=== PATIENT | male | born 1945 | race Hispanic/Latino ===

== ENCOUNTER 2022-05-08 13:21 | Inpatient (IN) | payer MEDICARE ==
[2022-05-08] MEDS ORDERED: IPRATROPIUM 0.02% NEBU 2.5 ML IH ONE (14:11)
[2022-05-08] MEDS ORDERED: ALBUTEROL 2.5 MG/3 ML NEBU IH ONE (14:11)
[2022-05-08] MEDS ORDERED: methylPREDNISolone Sod Succinate 125 MG/2 ML INJ IV ONE (14:11)
--- NOTE | 2022-05-08 14:36 | XRay Report ---
CHEST 1 VIEW 05/08/2022 2:18 PM INDICATION / CLINICAL INFORMATION: Dyspnea. COMPARISON: None available. FINDINGS: SUPPORT DEVICES: None. HEART / MEDIASTINUM: No significant abnormality. LUNGS / PLEURA: No significant pulmonary or pleural abnormality. No pneumothorax. ADDITIONAL FINDINGS: No significant additional findings. IMPRESSION: 1. No acute findings. Signer Name: Tai Hylton MD Signed: 05/08/2022 2:31 PM Workstation Name: [email or web address]
[2022-05-08 15:36] LABS: Hematocrit 47.2 % (35.5-45.6); Hemoglobin 16.1 gm/dl (11.8-15.2); Mean Corpuscular HGB Conc 34 % (32-34); Mean Corpuscular Volume 91 fl (84-94); Platelet Count 230 K/mm3 (140-440); Red Blood Count 5.21 M/mm3 (3.65-5.03); Red Cell Distribution Width 13.7 % (13.2-15.2)
[2022-05-08 15:54] LABS: Creatine Kinase MB 2.1 ng/mL (0.0-4.0)
[2022-05-08 15:56] LABS: Alanine Aminotransferase 8 units/L (7-56); BUN/Creatinine Ratio 16; Blood Urea Nitrogen 16 mg/dL (9-20); Hemolysis Index 11
[2022-05-08 16:02] LABS: INR 1.06 (0.87-1.13)
[2022-05-08] MEDS ORDERED: FUROSEMIDE 40 MG/4 ML INJ IV ONE (16:40)
[2022-05-08 17:29] LABS: Band Neutrophils # (Manual) 0.4 K/mm3; Basophils % (Manual) 0 % (0.0-1.8); Total Cells Counted 100
[2022-05-08 17:30] LABS: Ovalocytes Few; Platelet Estimate Consistent w Auto
[2022-05-08 18:15] LABS: Mucus,Urine 1+ /HPF; WBC,Urine < 1.0 /HPF (0.0-6.0)
[2022-05-08 18:24] LABS: Color,Urine Amber (Yellow)
--- NOTE | 2022-05-08 19:26 | Cat Scan Report ---
CT ABDOMEN AND PELVIS WITH CONTRAST INDICATION / CLINICAL INFORMATION: pain. TECHNIQUE: Axial CT images were obtained through the abdomen and pelvis after 100 mL Omnipaque [address] scans at this location are performed using CT dose reduction for ALARA by means of automated exposure control. COMPARISON: None available. FINDINGS: LOWER CHEST: No significant abnormality. LIVER: No significant abnormality. GALLBLADDER: Cholecystectomy. BILE DUCTS: No significant abnormality. PANCREAS: No significant abnormality. SPLEEN: No significant abnormality. ADRENALS: No significant abnormality. RIGHT KIDNEY / URETER: Simple cyst measuring 4.6 cm. No significant abnormality. LEFT KIDNEY / URETER: Simple cyst measuring 4.5 cm. No significant abnormality. STOMACH / SMALL BOWEL: Mildly thickened, fluid-filled, but nondilated loops of small bowel. No small bowel obstruction. COLON: Nonobstructed loop of sigmoid colon is present in a very large left inguinal hernia. No coloni c obstruction. APPENDIX: The appendix is dilated with mucosal enhancement. Appendix measures 1.1 cm in diameter. Mil d periappendiceal inflammation. PERITONEUM: Small amount of free fluid in the pelvis. No free air. No fluid collection. LYMPH NODES: No significant adenopathy. AORTA / ARTERIES: Mild atherosclerotic calcification without acute abnormality. IVC / VEINS: No significant abnormality. URINARY BLADDER: No significant abnormality. REPRODUCTIVE ORGANS: Prostate is enlarged. Prostate measures 6.1 x 6.3 x 7.8 cm. There is moderate in travesical protrusion of the median lobe of the prostate. ADDITIONAL FINDINGS: None. SKELETAL SYSTEM: No significant abnormality. IMPRESSION: 1. Mildly dilated fluid-filled appendix with mucosal enhancement and mild adjacent inflammation. Clin ical and laboratory correlation for acute appendicitis is recommended. 2. Large left inguinal hernia containing nonobstructed loop of sigmoid colon. 3. Fluid-filled but nondilated loops of small bowel which can be seen in the clinical setting of ente ritis. 4. Markedly enlarged prostate with intravesical protrusion. Signer Name: Tung Sousa MD Signed: 05/08/2022 7:21 PM Workstation Name: [email or web address] [id number]
--- NOTE | 2022-05-08 19:49 | History and Physical Report ---
History of Present Illness Chief complaint: My stomach hurts and it is a little hard to breathe History of present illness: 76 YO Male with Systolic CHF(EF 35%), COPD, HTN, VA, Nicotine Dependence presents ED for evaluation. Patient states "my stomach hurts and it is a little hard to breathe". Patient states that he has experienced abdominal pain to his lower right side over the past 3 days with persistent and worsening symptoms over the same timeframe. Patient states that pain is 2-4/10, intermittent. Patient also reports shortness of breath, decreased exercise tolerance. EMS was notified and upon arrival the patient was found to be in distress and subsequent transported to [facility] for further care and evaluation of the aforementioned symptoms. The patient was seen and evaluated in the emergency department. All lab and imaging studies reviewed. Patient was CT scan of the abdomen pelvis and found to have clinical findings consistent with acute appendicitis. Surgery team consulted in ED. Patient also found to have evidence of chronic CHF. Patient initiated on CHF protocol. Cardiology team consulted in ED. Patient denies fever, chills, chest pain, palpitation, adductive cough, skin rash, recen t contact, unilateral leg swelling, calf pain, individual/family history of DVT/PE/bleeding/blood clotting disorders, or known exposure to COVID-19, ingestion of food/water from new or different sources. Prior admission on 08/12/2016 reviewed. All medication listed at time of admission has been rec onciled. Advanced care planning conducted in ED. Medications and Allergies Allergies Allergy/AdvReac Type Severity Reaction Status Date / Time No Known Allergies Allergy Unverified 08/12/16 20:57 Home Medications Medication Instructions Recorded Confirmed Last Taken Type Atenolol 50 mg PO DAILY 08/12/16 08/12/16 1 Day Ago History ~08/11/16 Cardizem 120 mg PO DAILY 08/12/16 08/12/16 1 Day Ago History ~08/11/16 Aspirin 325 mg PO QDAY 30 Days tablet 08/14/16 Unknown Rx Simvastatin (Nf) [Zocor TAB] 20 mg PO QHS #30 tablet 08/14/16 Unknown Rx lisinopriL [Zestril TAB] 10 mg PO QDAY #30 tablet 08/14/16 Unknown Rx Active Meds: Active Medications Ertapenem 1 gm/ Sodium (Chloride) 50 mls @ 100 mls/hr IV ONCE ONE Stop: 05/08/22 20:17 Exam - Constitutional Vitals: Temp Pulse Resp BP Pulse Ox 99.9 F H 81 20 114/49 99 05/08/22 18:16 05/08/22 18:16 05/08/22 18:16 05/08/22 18:16 05/08/22 18:16 HEART Score - HEART Score Troponin: Troponin T < 0.010 ng/mL (0.00-0.029) 05/08/22 14:46 Results - Labs CBC & Chem 7: 05/08/22 14:46 05/08/22 14:46 Labs: Abnormal lab results 05/08/22 05/08/22 05/08/22 Range/Units 14:46 14:46 14:46 RBC 5.21 H (3.65-5.03) M/mm3 Hgb 16.1 H (11.8-15.2) gm/dl Hct 47.2 H (35.5-45.6) % Seg Neuts % (Manual) 92.0 H (40.0-70.0) % Lymphocytes % (Manual) 1.0 L (13.4-35.0) % Seg Neutrophils # Man 9.7 H (1.8-7.7) K/mm3 Lymphocytes # (Manual) 0.1 L (1.2-5.4) K/mm3 PT 15.0 H (12.2-14.9) Sec. Sodium 129 L (137-145) mmol/L Potassium 5.8 H (3.6-5.0) mmol/L Chloride 88.6 L (98-107) mmol/L Glucose 190 H (75-100) mg/dL Total Bilirubin 1.70 H (0.1-1.2) mg/dL C-Reactive Protein (0.00-1.30) mg/dL NT-Pro-B Natriuret Pep (0-900) pg/mL Total Protein 6.1 L (6.3-8.2) g/dL Lipase 12 L (13-60) units/L 05/08/22 Range/Units 14:46 RBC (3.65-5.03) M/mm3 Hgb (11.8-15.2) gm/dl Hct (35.5-45.6) % Seg Neuts % (Manual) (40.0-70.0) % Lymphocytes % (Manual) (13.4-35.0) % Seg Neutrophils # Man (1.8-7.7) K/mm3 Lymphocytes # (Manual) (1.2-5.4) K/mm3 PT (12.2-14.9) Sec. Sodium (137-145) mmol/L Potassium (3.6-5.0) mmol/L Chloride (98-107) mmol/L Glucose (75-100) mg/dL Total Bilirubin (0.1-1.2) mg/dL C-Reactive Protein 11.40 H (0.00-1.30) mg/dL NT-Pro-B Natriuret Pep 3007 H (0-900) pg/mL Total Protein (6.3-8.2) g/dL Lipase (13-60) units/L Assessment and Plan - Patient Problems (1) Acute appendicitis Current Visit: Yes Status: Acute Qualifiers: Appendicitis abscess presence: without abscess Plan to address problem: CT scan abdomen pelvis, serial abdominal exam, surgery team consulted in ED, supportive care. (2) BPH (benign prostatic hyperplasia) Current Visit: Yes Status: Acute Plan to address problem: CT scan abdomen pelvis resulted and incidental finding of enlarged prostate. PSA level. Outpatient urology follow-up. (3) COPD (chronic obstructive pulmonary disease) Current Visit: Yes Status: Acute Plan to address problem: Supplemental oxygen, pulse oximetry, nebulizer therapy, supportive care. No acute exacerbation at this time. (4) CHF (congestive heart failure) Current Visit: Yes Status: Acute Qualifiers: Heart failure chronicity: chronic Plan to address problem: CHF protocol: Strict I/O, monitoring output every shift, daily weight, afterload reduction, blood pressure control, diuresis, cardiology team consulted, echocardiogram ordered and pending at time of admission, thyroid panel, magnesium level. (5) DVT prophylaxis Current Visit: Yes Status: Acute Plan to address problem: SCD to bilateral lower extremities while in bed (6) Advance care planning Current Visit: Yes Status: Acute Plan to address problem: Disease education done, care plan discussed, diagnoses discussed, prognosis discussed, patient is full code. Patient knowledges understanding agreement with care plan, +30 minutes. (7) Preventative health care Current Visit: Yes Status: Acute Plan to address problem: Patient counseled regarding risk factor reduction, outpatient follow-up with [facility] care physician for all age and risk factor appropriate screening test. +30 minutes.
[2022-05-08] MEDS ORDERED: ONDANSETRON 4 MG/2 ML INJ IV PRN (19:50)
[2022-05-08] MEDS ORDERED: ACETAMINOPHEN 325 MG TAB PO PRN (19:50)
[2022-05-08] MEDS ORDERED: ALBUTEROL 2.5 MG/3 ML NEBU IH PRN (19:50)
--- NOTE | 2022-05-08 19:53 | Emergency Department Report ---
ED General Adult HPI - General Chief complaint: Dyspnea/Respdistress Stated complaint: ANTONELLA PUI?: No Time Seen by Provider: 05/08/22 14:11 Source: EMS Mode of arrival: Stretcher Limitations: Physical Limitation - History of Present Illness Initial comments: PT REPORTS ANTONELLA, RECEIVED 2.5 [employer] history of chf and copd, not on home o2 also reported some rt lower abdominal pain no anusea no fever , has lower abdominal hernia -: Gradual, hour(s) Location: chest, abdomen Severity scale (0 -10): 0 - Related Data Home Medications Medication Instructions Recorded Confirmed Last Taken Atenolol 50 mg PO DAILY 08/12/16 08/12/16 1 Day Ago ~08/11/16 Cardizem 120 mg PO DAILY 08/12/16 08/12/16 1 Day Ago ~08/11/16 Previous Rx's Medication Instructions Recorded Last Taken Type Aspirin 325 mg PO QDAY 30 Days tablet 08/14/16 Unknown Rx Simvastatin (Nf) [Zocor TAB] 20 mg PO QHS #30 tablet 08/14/16 Unknown Rx lisinopriL [Zestril TAB] 10 mg PO QDAY #30 tablet 08/14/16 Unknown Rx Allergies Allergy/AdvReac Type Severity Reaction Status Date / Time No Known Allergies Allergy Unverified 08/12/16 20:57 ED Review of Systems ROS: Stated complaint: ANTONELLA Other details as noted in HPI Constitutional: denies: chills, fever Eyes: denies: eye pain, eye discharge, vision change ENT: denies: ear pain, throat pain Respiratory: denies: cough, shortness of breath, wheezing Cardiovascular: denies: chest pain, palpitations Endocrine: no symptoms reported Gastrointestinal: denies: abdominal pain, nausea, diarrhea Genitourinary: denies: urgency, dysuria Musculoskeletal: denies: back pain, joint swelling, arthralgia Skin: denies: rash, lesions Neurological: denies: headache, weakness, paresthesias Psychiatric: denies: anxiety, depression Hematological/Lymphatic: denies: easy bleeding, easy bruising ED Past Medical Hx - Past Medical History Previous Medical History?: Yes Hx Hypertension: Yes Hx Heart Attack/AMI: Yes (x2) - Surgical History Hx Cholecystectomy: Yes - Social History Smoking Status: Current Every Day Smoker Substance Use Type: None - Medications Home Medications: Home Medications Medication Instructions Recorded Confirmed Last Taken Type Atenolol 50 mg PO DAILY 08/12/16 08/12/16 1 Day Ago History ~08/11/16 Cardizem 120 mg PO DAILY 08/12/16 08/12/16 1 Day Ago History ~08/11/16 Aspirin 325 mg PO QDAY 30 Days tablet 08/14/16 Unknown Rx Simvastatin (Nf) [Zocor TAB] 20 mg PO QHS #30 tablet 08/14/16 Unknown Rx lisinopriL [Zestril TAB] 10 mg PO QDAY #30 tablet 08/14/16 Unknown Rx ED Physical Exam - General Limitations: Physical Limitation General appearance: alert - Head Head exam: Present: atraumatic, normocephalic - Eye Eye exam: Present: normal appearance - ENT ENT exam: Present: mucous membranes moist - Neck Neck exam: Present: normal inspection - Respiratory Respiratory exam: Present: normal lung sounds bilaterally, wheezes. Absent: respiratory distress - Cardiovascular Cardiovascular Exam: Present: regular rate, normal rhythm. Absent: systolic murmur, diastolic murmur, rubs, gallop - GI/Abdominal GI/Abdominal exam: Present: soft, tenderness - Expanded GI/Abdominal Exam Expanded GI/Abdominal exam: Present: tenderness at [place], other (large left ingional hernia) - Rectal Rectal exam: Present: deferred - Extremities Exam Extremities exam: Present: normal inspection - Back Exam Back exam: Present: normal inspection - Neurological Exam Neurological exam: Present: alert, oriented X3 - Psychiatric Psychiatric exam: Present: normal affect, normal mood - Skin Skin exam: Present: warm, dry, intact, normal color. Absent: rash ED Course Vital Signs 05/08/22 05/08/22 05/08/22 13:31 14:01 16:40 Temperature 98.9 F 97.9 F Pulse Rate 90 87 92 H Respiratory 18 22 20 Rate Blood Pressure 111/64 Blood Pressure 120/78 111/64 121/55 [Left] O2 Sat by Pulse 95 97 95 Oximetry 05/08/22 18:16 Temperature 99.9 F H Pulse Rate 81 Respiratory 20 Rate Blood Pressure Blood Pressure 114/49 [Left] O2 Sat by Pulse 99 Oximetry ED Medical Decision Making - Lab Data Result diagrams: 05/08/22 14:46 05/08/22 14:46 - EKG Data -: EKG Interpreted by Me - EKG Data Interpretation: nonspecific ST-T wave yumiko, other (atrial fib ) - Radiology Data Radiology results: report reviewed, image reviewed - Medical Decision Making albuterol sterios given lasix given ct scan showed appendicitis abx given will speak to dr Jackson Critical care attestation.: If time is entered above; I have spent that time in minutes in the direct care of this critically ill patient, excluding procedure time. ED Disposition Clinical Impression: SOB (shortness of breath), COPD exacerbation, CHF (congestive heart failure), Acute appendicitis Disposition: 09 ADMITTED INPATIENT Is pt being admited?: Yes Does the pt Need Aspirin: No Condition: Stable Instructions: Chronic Obstructive Pulmonary Disease (ED)
[2022-05-08 20:36] LABS: Free T4 (Free Thyroxine) 1.21 ng/dL (0.76-1.46)
[2022-05-08] MEDS ORDERED: ERTAPENEM 1 GM in SODIUM CHLORIDE 0.9% 50 ML IV ONE (21:00)
--- NOTE | 2022-05-08 22:59 | Consultation ---
History of Present Illness Consult date: 05/08/22 Reason for consult: abdominal pain - History of present illness History of present illness: Malik is a 76-year-old male admitted through the emergency room with lower abdominal pain. He has medical issues including congestive heart failure and COPD. He is a chronic smoker and is continuing to smoke. He states that he is having lower abdominal pain for the last 3 to 4 days. He is denying any nausea or vomiting. Patient is aware that he has a large right inguinal hernia. He is refused to have this repaired in the past. CT of the abdomen pelvis is significant for early acute appendicitis with a mild dilatation of the pandemics. Patient's white count is 10,500 unfortunately his sodium is 129 his potassium is 5.8. Creatinine is 1.0 BUN 16 GFR is greater than 60. His admission glucose is 190. The surgical consult is for evaluation of and management of abdominal pain related to acute appendicitis. Medications and Allergies Allergies Allergy/AdvReac Type Severity Reaction Status Date / Time No Known Allergies Allergy Unverified 08/12/16 20:57 Home Medications Medication Instructions Recorded Confirmed Last Taken Type Atenolol 50 mg PO DAILY 08/12/16 08/12/16 1 Day Ago History ~08/11/16 Cardizem 120 mg PO DAILY 08/12/16 08/12/16 1 Day Ago History ~08/11/16 Aspirin 325 mg PO QDAY 30 Days tablet 08/14/16 Unknown Rx Simvastatin (Nf) [Zocor TAB] 20 mg PO QHS #30 tablet 08/14/16 Unknown Rx lisinopriL [Zestril TAB] 10 mg PO QDAY #30 tablet 08/14/16 Unknown Rx Active Meds: Active Medications Acetaminophen (Acetaminophen 325 Mg Tab) 650 mg PO Q4H PRN PRN Reason: Pain MILD(1-3)/Fever >100.5/HURST Albuterol (Albuterol 2.5 Mg/3 Ml Nebu) 2.5 mg IH Q4HRT PRN PRN Reason: Shortness Of Breath Atenolol (Atenolol 50 Mg Tab) 50 mg PO DAILY@0800 ANNIE Furosemide (Furosemide 20 Mg/2 Ml Inj) 20 mg IV BID@0600,1800 ANNIE Hydromorphone HCl (Hydromorphone 0.5 Mg/0.5 Ml Inj) 0.5 mg IV Q8H PRN PRN Reason: Pain , Severe (7-10) Lisinopril (Lisinopril 10 Mg Tab) 10 mg PO QDAY ANNIE Ondansetron HCl (Ondansetron 4 Mg/2 Ml Inj) 4 mg IV Q8H PRN PRN Reason: Nausea And Vomiting Oxycodone/Acetaminophen (Oxycodone /Acetaminophen 5-325mg Tab) 1 tab PO Q6H PRN PRN Reason: Pain, Moderate (4-6) Pravastatin Sodium (Pravastatin 40 Mg Tab) 40 mg PO QHS ANNIE Sodium Chloride (Sodium Chloride 0.9% 10 Ml Flush Syringe) 10 ml IV BID ANNIE Sodium Chloride (Sodium Chloride 0.9% 10 Ml Flush Syringe) 10 ml IV PRN PRN PRN Reason: LINE FLUSH Exam Vital Signs Pulse Resp BP Pulse Ox 90 18 120/78 95 05/08/22 13:31 05/08/22 13:31 05/08/22 13:31 05/08/22 13:31 - General physical appearance Positive: well developed - Eyes Positive: PERRL - Neck Positive: no masses, no bruits, trachea midline - Respiratory Positive: normal expansion - Cardiovascular Rhythm: regular - Extremities Extremities: no ischemia, No edema - Abdomen Abdomen: Present: soft, tender, bowel sounds normal, rebound, guarding. Absent: distended, masses, rigid Hernia: inguinal, incarcerated - Genitourinary Male Genitourinary: left inguinal hernia - Neurologic Neurologic: alert and oriented to time, place and person, motor strength and sensation are grossly intact, CN II-XII intact Results - Labs 05/08/22 14:46 05/08/22 14:46 Abnormal lab results 05/08/22 05/08/22 05/08/22 Range/Units 14:46 14:46 14:46 RBC 5.21 H (3.65-5.03) M/mm3 Hgb 16.1 H (11.8-15.2) gm/dl Hct 47.2 H (35.5-45.6) % Seg Neuts % (Manual) 92.0 H (40.0-70.0) % Lymphocytes % (Manual) 1.0 L (13.4-35.0) % Seg Neutrophils # Man 9.7 H (1.8-7.7) K/mm3 Lymphocytes # (Manual) 0.1 L (1.2-5.4) K/mm3 PT 15.0 H (12.2-14.9) Sec. Sodium 129 L (137-145) mmol/L Potassium 5.8 H (3.6-5.0) mmol/L Chloride 88.6 L (98-107) mmol/L Glucose 190 H (75-100) mg/dL Magnesium (1.7-2.3) mg/dL Total Bilirubin 1.70 H (0.1-1.2) mg/dL C-Reactive Protein (0.00-1.30) mg/dL NT-Pro-B Natriuret Pep (0-900) pg/mL Total Protein 6.1 L (6.3-8.2) g/dL Lipase 12 L (13-60) units/L 05/08/22 05/08/22 Range/Units 14:46 14:46 RBC (3.65-5.03) M/mm3 Hgb (11.8-15.2) gm/dl Hct (35.5-45.6) % Seg Neuts % (Manual) (40.0-70.0) % Lymphocytes % (Manual) (13.4-35.0) % Seg Neutrophils # Man (1.8-7.7) K/mm3 Lymphocytes # (Manual) (1.2-5.4) K/mm3 PT (12.2-14.9) Sec. Sodium (137-145) mmol/L Potassium (3.6-5.0) mmol/L Chloride (98-107) mmol/L Glucose (75-100) mg/dL Magnesium 1.50 L (1.7-2.3) mg/dL Total Bilirubin (0.1-1.2) mg/dL C-Reactive Protein 11.40 H (0.00-1.30) mg/dL NT-Pro-B Natriuret Pep 3007 H (0-900) pg/mL Total Protein (6.3-8.2) g/dL Lipase (13-60) units/L Diabetes panel 05/08/22 Range/Units 14:46 Sodium 129 L (137-145) mmol/L Potassium 5.8 H (3.6-5.0) mmol/L Chloride 88.6 L (98-107) mmol/L Carbon Dioxide 28 (22-30) mmol/L BUN 16 (9-20) mg/dL Creatinine 1.0 (0.8-1.3) mg/dL Glucose 190 H (75-100) mg/dL Calcium 9.0 (8.4-10.2) mg/dL AST 14 (5-40) units/L ALT 8 (7-56) units/L Alkaline Phosphatase 96 (35-129) units/L Total Protein 6.1 L (6.3-8.2) g/dL Albumin 4.0 (3.9-5) g/dL Thyroid panel 05/08/22 Range/Units 14:46 TSH 0.805 (0.270-4.200) mlU/mL Calcium panel 05/08/22 Range/Units 14:46 Calcium 9.0 (8.4-10.2) mg/dL Albumin 4.0 (3.9-5) g/dL Pituitary panel 05/08/22 05/08/22 Range/Units 14:46 14:46 Sodium 129 L (137-145) mmol/L Potassium 5.8 H (3.6-5.0) mmol/L Chloride 88.6 L (98-107) mmol/L Carbon Dioxide 28 (22-30) mmol/L BUN 16 (9-20) mg/dL Creatinine 1.0 (0.8-1.3) mg/dL Glucose 190 H (75-100) mg/dL Calcium 9.0 (8.4-10.2) mg/dL TSH 0.805 (0.270-4.200) mlU/mL Adrenal panel 05/08/22 Range/Units 14:46 Sodium 129 L (137-145) mmol/L Potassium 5.8 H (3.6-5.0) mmol/L Chloride 88.6 L (98-107) mmol/L Carbon Dioxide 28 (22-30) mmol/L BUN 16 (9-20) mg/dL Creatinine 1.0 (0.8-1.3) mg/dL Glucose 190 H (75-100) mg/dL Calcium 9.0 (8.4-10.2) mg/dL Total Bilirubin 1.70 H (0.1-1.2) mg/dL AST 14 (5-40) units/L ALT 8 (7-56) units/L Alkaline Phosphatase 96 (35-129) units/L Total Protein 6.1 L (6.3-8.2) g/dL Albumin 4.0 (3.9-5) g/dL Assessment and Plan This is a 76-year-old patient with acute appendicitis. He is notably with a markedly abnormal sodium at 129 potassium 5.9 these are being corrected this evening. Dr. Benavides has admitted the patient and in discussion with them would like to do any cardiology clearance and echocardiogram. Patient will be made n.p.o. after midnight he is on clear liquids now. If the pain does not clinically deteriorate through the night the correction of the electrolytes will be checked and also the echocardiogram can be obtained.
[2022-05-08] MEDS: SODIUM CHLORIDE 0.9% 1000 ML 1,000 ML IV SCH (23:30)
[2022-05-08] MEDS: PRAVASTATIN 40 MG TAB PO SCH (23:34)
[2022-05-08] MEDS ORDERED: SODIUM POLYSTYRENE 15 GM/60 ML ORAL LIQD PO ONE (23:58)
[2022-05-08] MEDS ORDERED: DEXTROSE 50% IN WATER (25GM) 50 ML SYRINGE IV ONE (23:59)
[2022-05-08] MEDS ORDERED: INSULIN REGULAR, HUMAN 100 UNITS/1 ML IV ONE (23:59)
[2022-05-09 04:25] LABS: Alanine Aminotransferase 9 units/L (7-56); Albumin 3.7 g/dL (3.9-5); BUN/Creatinine Ratio 23; Blood Urea Nitrogen 21 mg/dL (9-20); Calcium 8.7 mg/dL (8.4-10.2); Hemolysis Index 16
[2022-05-09 04:47] LABS: Hematocrit 45.6 % (35.5-45.6); Hemoglobin 15.1 gm/dl (11.8-15.2); Mean Corpuscular HGB Conc 33 % (32-34); Mean Corpuscular Volume 90 fl (84-94); Platelet Count 197 K/mm3 (140-440); Red Blood Count 5.05 M/mm3 (3.65-5.03); Red Cell Distribution Width 13.2 % (13.2-15.2)
[2022-05-09 05:35] LABS: Basophils % (Manual) 0 % (0.0-1.8); Eosinophils % (Manual) 0 % (0.0-4.3); RBC Morphology Normal; Total Cells Counted 100
[2022-05-09] MEDS: INSULIN REGULAR, HUMAN 100 UNITS/1 ML IV ONE ×2 (05:44→05:47)
[2022-05-09] MEDS ORDERED: SODIUM POLYSTYRENE 15 GM/60 ML ORAL LIQD PO ONE (05:47)
[2022-05-09] MEDS: FUROSEMIDE 20 MG/2 ML INJ IV SCH ×2 (06:18→17:16)
[2022-05-09] MEDS ORDERED: DEXTROSE 50% IN WATER (25GM) 50 ML SYRINGE IV ONE (06:38)
[2022-05-09] MEDS: SODIUM CHLORIDE 0.9% 1000 ML 1,000 ML IV SCH ×2 (07:01→22:24)
[2022-05-09] MEDS: HYDROmorphone 0.5 MG/0.5 ML INJ IV PRN (07:54)
[2022-05-09] MEDS: LISINOPRIL 10 MG TAB PO SCH ×2 (08:50→16:41)
[2022-05-09] MEDS: atenoloL 50 MG TAB PO SCH (08:50)
--- NOTE | 2022-05-09 09:49 | Progress Note ---
Assessment and Plan Assessment and plan: 76 YO Male with Systolic CHF(EF 35%), COPD, HTN, LA, Nicotine Dependence [facility] ED for evaluation of right-sided abdominal pain. The patient was admitted with diagnosis below: Acute appendicitis COPD, compensated. Chronic systolic heart failure, compensated. Echocardiogram 2016 revealed EF of 35-40%. Moderate global hypokinesis. Mild concentric left ventricular hyp ertrophy Hyponatremia Hyperkalemia Hypertension History of LA Nicotine dependence 05/09/2022. Recheck BMP this AM. Patient received Lasix and Kayexalate yesterday. We will follow-up to see if treatment has corrected potassium. Given patient's cardiac history of CHF and LA, Cardiology has been consulted and echocardiogram pending. Await surgery follow-up for appendectomy History Interval history: No new issues Hospitalist Physical - Constitutional Vitals: Temp Pulse Resp BP Pulse Ox 98.3 F 111 H 20 143/74 100 05/09/22 05:57 05/09/22 05:57 05/09/22 05:57 05/09/22 05:57 05/09/22 08:47 General appearance: Present: no acute distress, well-nourished - EENT Eyes: Present: PERRL, EOM intact ENT: hearing intact, clear oral mucosa, dentition normal - Neck Neck: Present: supple, normal ROM - Respiratory Respiratory effort: normal Respiratory: bilateral: CTA - Cardiovascular Rhythm: regular Heart Sounds: Present: S1 & S2. Absent: gallop, rub - Extremities Extremities: no ischemia, No edema, Full ROM - Abdominal General gastrointestinal: soft, non-tender, non-distended, normal bowel sounds - Integumentary Integumentary: Present: clear, warm, dry - Neurologic Neurologic: CNII-XII intact, moves all extremities HEART Score - HEART Score Troponin: Troponin T < 0.010 ng/mL (0.00-0.029) 05/08/22 14:46 Results - Labs CBC & Chem 7: 05/09/22 03:43 05/09/22 03:43 Labs: Laboratory Last Values WBC 8.5 K/mm3 (4.5-11.0) 05/09/22 03:43 RBC 5.05 M/mm3 (3.65-5.03) H 05/09/22 03:43 Hgb 15.1 gm/dl (11.8-15.2) 05/09/22 03:43 Hct 45.6 % (35.5-45.6) 05/09/22 03:43 MCV 90 fl (84-94) 05/09/22 03:43 MCH 30 pg (28-32) 05/09/22 03:43 MCHC 33 % (32-34) 05/09/22 03:43 RDW 13.2 % (13.2-15.2) 05/09/22 03:43 Plt Count 197 K/mm3 (140-440) 05/09/22 03:43 Add Manual Diff Complete 05/09/22 03:43 Total Counted 100 05/09/22 03:43 Seg Neutrophils % Rubber Liner 05/09/22 03:43 Seg Neuts % (Manual) 87.0 % (40.0-70.0) H 05/09/22 03:43 Band Neutrophils % 0 % 05/09/22 03:43 Lymphocytes % (Manual) 8.0 % (13.4-35.0) L 05/09/22 03:43 Reactive Lymphs % (Man) 0 % 05/09/22 03:43 Monocytes % (Manual) 5.0 % (0.0-7.3) 05/09/22 03:43 Eosinophils % (Manual) 0 % (0.0-4.3) 05/09/22 03:43 Basophils % (Manual) 0 % (0.0-1.8) 05/09/22 03:43 Metamyelocytes % 0 % 05/09/22 03:43 Myelocytes % 0 % 05/09/22 03:43 Promyelocytes % 0 % 05/09/22 03:43 Blast Cells % 0 % 05/09/22 03:43 Nucleated RBC % Not Reportable 05/09/22 03:43 Seg Neutrophils # Man 7.4 K/mm3 (1.8-7.7) 05/09/22 03:43 Band Neutrophils # 0.0 K/mm3 05/09/22 03:43 Lymphocytes # (Manual) 0.7 K/mm3 (1.2-5.4) L 05/09/22 03:43 Abs React Lymphs (Man) 0.0 K/mm3 05/09/22 03:43 Monocytes # (Manual) 0.4 K/mm3 (0.0-0.8) 05/09/22 03:43 Eosinophils # (Manual) 0.0 K/mm3 (0.0-0.4) 05/09/22 03:43 Basophils # (Manual) 0.0 K/mm3 (0.0-0.1) 05/09/22 03:43 Metamyelocytes # 0.0 K/mm3 05/09/22 03:43 Myelocytes # 0.0 K/mm3 05/09/22 03:43 Promyelocytes # 0.0 K/mm3 05/09/22 03:43 Blast Cells # 0.0 K/mm3 05/09/22 03:43 WBC Morphology Not Reportable 05/09/22 03:43 Hypersegmented Neuts Not Reportable 05/09/22 03:43 Hyposegmented Neuts Not Reportable 05/09/22 03:43 Hypogranular Neuts Not Reportable 05/09/22 03:43 Smudge Cells Not Reportable 05/09/22 03:43 Toxic Granulation Not Reportable 05/09/22 03:43 Toxic Vacuolation Not Reportable 05/09/22 03:43 Dohle Bodies Not Reportable 05/09/22 03:43 Pelger-Huet Anomaly Not Reportable 05/09/22 03:43 Niko Rods Not Reportable 05/09/22 03:43 Platelet Estimate Not Reportable 05/09/22 03:43 Clumped Platelets Not Reportable 05/09/22 03:43 Plt Clumps, EDTA Not Reportable 05/09/22 03:43 Large Platelets Not Reportable 05/09/22 03:43 Giant Platelets Not Reportable 05/09/22 03:43 Platelet Satelliting Not Reportable 05/09/22 03:43 Plt Morphology Comment Not Reportable 05/09/22 03:43 RBC Morphology Normal 05/09/22 03:43 Dimorphic RBCs Not Reportable 05/09/22 03:43 Polychromasia Not Reportable 05/09/22 03:43 Hypochromasia Not Reportable 05/09/22 03:43 Poikilocytosis Not Reportable 05/09/22 03:43 Anisocytosis Not Reportable 05/09/22 03:43 Microcytosis Not Reportable 05/09/22 03:43 Macrocytosis Not Reportable 05/09/22 03:43 Spherocytes Not Reportable 05/09/22 03:43 Pappenheimer Bodies Not Reportable 05/09/22 03:43 Sickle Cells Not Reportable 05/09/22 03:43 Target Cells Not Reportable 05/09/22 03:43 Tear Drop Cells Not Reportable 05/09/22 03:43 Ovalocytes Not Reportable 05/09/22 03:43 Helmet Cells Not Reportable 05/09/22 03:43 [place] Bodies Not Reportable 05/09/22 03:43 Herrick Rings Not Reportable 05/09/22 03:43 [place] Cells Not Reportable 05/09/22 03:43 Bite Cells Not Reportable 05/09/22 03:43 Crenated Cell Not Reportable 05/09/22 03:43 Elliptocytes Not Reportable 05/09/22 03:43 Acanthocytes (Spur) Not Reportable 05/09/22 03:43 Rouleaux Not Reportable 05/09/22 03:43 Hemoglobin C Crystals Not Reportable 05/09/22 03:43 Schistocytes Not Reportable 05/09/22 03:43 Malaria parasites Not Reportable 05/09/22 03:43 Ruben Bodies Not Reportable 05/09/22 03:43 Hem Pathologist Commnt No 05/09/22 03:43 PT 15.0 Sec. (12.2-14.9) H 05/08/22 14:46 INR 1.06 (0.87-1.13) 05/08/22 14:46 Sodium 130 mmol/L (137-145) L 05/09/22 03:43 Potassium 6.1 mmol/L (3.6-5.0) H* 05/09/22 03:43 Chloride 91.6 mmol/L (98-107) L 05/09/22 03:43 Carbon Dioxide 28 mmol/L (22-30) 05/09/22 03:43 Anion Gap 17 mmol/L 05/09/22 03:43 BUN 21 mg/dL (9-20) H 05/09/22 03:43 Creatinine 0.9 mg/dL (0.8-1.3) 05/09/22 03:43 Estimated GFR > 60 ml/min 05/09/22 03:43 BUN/Creatinine Ratio 23 % 05/09/22 03:43 Glucose 179 mg/dL (75-100) H 05/09/22 03:43 Ketones Quantitative Negative (Negative) 05/08/22 14:46 Calcium 8.7 mg/dL (8.4-10.2) 05/09/22 03:43 Magnesium 1.50 mg/dL (1.7-2.3) L 05/08/22 14:46 Total Bilirubin 0.70 mg/dL (0.1-1.2) 05/09/22 03:43 AST 12 units/L (5-40) 05/09/22 03:43 ALT 9 units/L (7-56) 05/09/22 03:43 Alkaline Phosphatase 71 units/L (35-129) 05/09/22 03:43 Total Creatine Kinase 70 units/L (55-170) 05/08/22 14:46 CK-MB (CK-2) 2.1 ng/mL (0.0-4.0) 05/08/22 14:46 CK-MB (CK-2) Rel Index 3.0 (0-4) 05/08/22 14:46 Troponin T < 0.010 ng/mL (0.00-0.029) 05/08/22 14:46 C-Reactive Protein 11.40 mg/dL (0.00-1.30) H 05/08/22 14:46 NT-Pro-B Natriuret Pep 3007 pg/mL (0-900) H 05/08/22 14:46 Total Protein 5.8 g/dL (6.3-8.2) L 05/09/22 03:43 Albumin 3.7 g/dL (3.9-5) L 05/09/22 03:43 Albumin/Globulin Ratio 1.8 % 05/09/22 03:43 Lipase 12 units/L (13-60) L 05/08/22 14:46 TSH 0.805 mlU/mL (0.270-4.200) 05/08/22 14:46 Free T4 1.21 ng/dL (0.76-1.46) 05/08/22 14:46 Urine Color Snow (Yellow) 05/08/22 16:53 Urine Turbidity Clear (Clear) 05/08/22 16:53 Specific [place] (Man) 1.020 (1.003-1.030) 05/08/22 16:53 Ur Protein (Man) 2+ mg/dL (Negative) 05/08/22 16:53 Ur Ketones (Man) Negative (Negative) 05/08/22 16:53 Ur Nitrite (Man) Negative (Negative) 05/08/22 16:53 Ur Reducing Substances Not Reportable 05/08/22 16:53 Urine Bilirubin (Man) Negative (Negative) 05/08/22 16:53 Urine Ictotest Not Reportable 05/08/22 16:53 Leukocyte Esterase (Man) Negative (Negative) 05/08/22 16:53 Urine WBC (Auto) < 1.0 /HPF (0.0-6.0) 05/08/22 16:53 Urine RBC (Auto) 2.0 /HPF (0.0-6.0) 05/08/22 16:53 Urine RBC (Manual) Negative (Negative) 05/08/22 16:53 Urine Mucus 1+ /HPF 05/08/22 16:53 Madden/IV: Voiding Method Toilet Active Medications - Current Medications Current Medications: Generic Name Dose Route Start Last Admin Trade Name Freq PRN Reason Stop Dose Admin Acetaminophen 650 mg 05/08/22 19:50 Acetaminophen 325 Mg Tab PO Q4H PRN Pain MILD(1-3)/Fever >100.5/HURST Albuterol 2.5 mg 05/08/22 19:50 Albuterol 2.5 Mg/3 Ml Nebu IH Q4HRT PRN Shortness Of Breath Atenolol 50 mg 05/09/22 08:00 05/09/22 08:50 Atenolol 50 Mg Tab PO 50 mg DAILY@0800 ANNIE Administration Furosemide 20 mg 05/09/22 06:00 05/09/22 06:18 Furosemide 20 Mg/2 Ml Inj IV 20 mg BID@0600,1800 ANNIE Administration Hydromorphone HCl 0.5 mg 05/08/22 19:50 05/09/22 07:54 Hydromorphone 0.5 Mg/0.5 Ml Inj IV 0.5 mg Q8H PRN Administration Pain , Severe (7-10) Sodium Chloride 1,000 mls @ 125 mls/hr 05/08/22 23:00 05/09/22 07:01 Nacl 0.9% 1000 Ml IV 125 mls/hr DIRECT ANNIE Administration Lisinopril 10 mg 05/09/22 10:00 05/09/22 08:50 Lisinopril 10 Mg Tab PO 10 mg QDAY ANNIE Administration Ondansetron HCl 4 mg 05/08/22 19:50 Ondansetron 4 Mg/2 Ml Inj IV Q8H PRN Nausea And Vomiting Oxycodone/Acetaminophen 1 tab 05/08/22 19:50 Oxycodone /Acetaminophen 5-325mg Tab PO Q6H PRN Pain, Moderate (4-6) Pravastatin Sodium 40 mg 05/08/22 22:00 05/08/22 23:34 Pravastatin 40 Mg Tab PO 40 mg QHS ANNIE Administration Sodium Chloride 10 ml 05/08/22 22:00 05/09/22 08:51 Sodium Chloride 0.9% 10 Ml Flush Syringe IV 10 ml BID ANNIE Administration Sodium Chloride 10 ml 05/08/22 19:50 Sodium Chloride 0.9% 10 Ml Flush Syringe IV PRN PRN LINE FLUSH
[2022-05-09] MEDS ORDERED: PERFLUTREN PROTEIN-A MICROSPHR 0.22 MG/ML VIAL IV ONE (11:00)
--- NOTE | 2022-05-09 11:09 | Consultation ---
History of Present Illness Consult date: 05/09/22 Requesting physician: STANLEY RUIZ Consult reason: pre op evaluation History of present illness: 76-year-old male who is a smoker with history of hypertension states 10 years ago had a heart attack. Has not had cardiac follow-up. Presents with right lower abdominal pain mated for possible appendicitis. Cardiology consult was called for cardiac evaluation. Bedside echocardiogram shows normal LV function EKG shows atrial fibrillation with nonspecific ST-T's with controlled rate. Patient denies knowing that he is in atrial fibrillation. Is not on oral anticoagulation but on 2 AV drake blocking agents. As patient prior to this how much can he walk patient states he can walk for 15 to 30 minutes without any issue. Denies any chest pain or shortness of breath. Is a smoker. Denies any syncopal episodes or palpitations or PND orthopnea Past History Past Medical History: atrial fib, hypertension, hyperlipidemia Social history: smoking Family history: no significant family history Medications and Allergies Allergies Allergy/AdvReac Type Severity Reaction Status Date / Time No Known Allergies Allergy Unverified 08/12/16 20:57 Home Medications Medication Instructions Recorded Confirmed Last Taken Type Atenolol 50 mg PO DAILY 08/12/16 05/09/22 1 Day Ago History ~08/11/16 Cardizem 120 mg PO DAILY 08/12/16 05/09/22 1 Day Ago History ~08/11/16 Aspirin 325 mg PO QDAY 30 Days tablet 08/14/16 05/09/22 Unknown Rx Simvastatin (Nf) [Zocor TAB] 20 mg PO QHS #30 tablet 08/14/16 05/09/22 Unknown Rx lisinopriL [Zestril TAB] 10 mg PO QDAY #30 tablet 08/14/16 05/09/22 Unknown Rx Active Meds: Active Medications Acetaminophen (Acetaminophen 325 Mg Tab) 650 mg PO Q4H PRN PRN Reason: Pain MILD(1-3)/Fever >100.5/HURST Albuterol (Albuterol 2.5 Mg/3 Ml Nebu) 2.5 mg IH Q4HRT PRN PRN Reason: Shortness Of Breath Atenolol (Atenolol 50 Mg Tab) 50 mg PO DAILY@0800 [facility] Last Admin: 05/09/22 08:50 Dose: 50 mg Furosemide (Furosemide 20 Mg/2 Ml Inj) 20 mg IV BID@0600,1800 [facility] Last Admin: 05/09/22 06:18 Dose: 20 mg Hydromorphone HCl (Hydromorphone 0.5 Mg/0.5 Ml Inj) 0.5 mg IV Q8H PRN PRN Reason: Pain , Severe (7-10) Last Admin: 05/09/22 07:54 Dose: 0.5 mg Sodium Chloride (Nacl 0.9% 1000 Ml) 1,000 mls @ 125 mls/hr IV DIRECT [facility] Last Admin: 05/09/22 07:01 Dose: 125 mls/hr Lisinopril (Lisinopril 10 Mg Tab) 10 mg PO QDAY [facility] Last Admin: 05/09/22 08:50 Dose: 10 mg Ondansetron HCl (Ondansetron 4 Mg/2 Ml Inj) 4 mg IV Q8H PRN PRN Reason: Nausea And Vomiting Oxycodone/Acetaminophen (Oxycodone /Acetaminophen 5-325mg Tab) 1 tab PO Q6H PRN PRN Reason: Pain, Moderate (4-6) Pravastatin Sodium (Pravastatin 40 Mg Tab) 40 mg PO QHS [facility] Last Admin: 05/08/22 23:34 Dose: 40 mg Sodium Chloride (Sodium Chloride 0.9% 10 Ml Flush Syringe) 10 ml IV BID [facility] Last Admin: 05/09/22 08:51 Dose: 10 ml Sodium Chloride (Sodium Chloride 0.9% 10 Ml Flush Syringe) 10 ml IV PRN PRN PRN Reason: LINE FLUSH Review of Systems All systems: negative (As per the HPI) Physical Examination Vital Signs Pulse Resp BP Pulse Ox 90 18 120/78 95 05/08/22 13:31 05/08/22 13:31 05/08/22 13:31 05/08/22 13:31 General appearance: no acute distress, well-nourished HEENT: Positive: PERRL, Mucus Membranes Moist Neck: Positive: neck supple, trachea midline Cardiac: Positive: Irregularly Regular, S1/S2. Negative: Audible Murmur Lungs: Positive: clear to auscultation, Normal Breath Sounds Neuro: Positive: Grossly Intact Abdomen: Positive: Soft, Active Bowel Sounds, Tender Male genitourinary: Positive: normal Skin: Positive: Clear Incision: Cardiac Cath Site Musculoskeletal: No Pain, Normal Range of Motion Extremities: Present: normal. Absent: edema Results 05/09/22 03:43 05/09/22 08:58 Cardiac Enzymes 05/08/22 05/09/22 Range/Units 14:46 03:43 AST 14 12 (5-40) units/L CK-MB (CK-2) 2.1 (0.0-4.0) ng/mL Coagulation 05/08/22 Range/Units 14:46 PT 15.0 H (12.2-14.9) Sec. INR 1.06 (0.87-1.13) CBC 05/08/22 05/09/22 Range/Units 14:46 03:43 WBC 10.5 8.5 (4.5-11.0) K/mm3 RBC 5.21 H 5.05 H (3.65-5.03) M/mm3 Hgb 16.1 H 15.1 (11.8-15.2) gm/dl Hct 47.2 H 45.6 (35.5-45.6) % Plt Count 230 197 (140-440) K/mm3 Comprehensive Metabolic Panel 05/08/22 05/09/22 05/09/22 Range/Units 14:46 03:43 08:58 Sodium 129 L 130 L (137-145) mmol/L Potassium 5.8 H 6.1 H* 5.6 H (3.6-5.0) mmol/L Chloride 88.6 L 91.6 L (98-107) mmol/L Carbon Dioxide 28 28 (22-30) mmol/L BUN 16 21 H (9-20) mg/dL Creatinine 1.0 0.9 (0.8-1.3) mg/dL Glucose 190 H 179 H (75-100) mg/dL Calcium 9.0 8.7 (8.4-10.2) mg/dL AST 14 12 (5-40) units/L ALT 8 9 (7-56) units/L Alkaline Phosphatase 96 71 (35-129) units/L Total Protein 6.1 L 5.8 L (6.3-8.2) g/dL Albumin 4.0 3.7 L (3.9-5) g/dL - Imaging and Cardiology Echo: report reviewed, other (2015 ef 35-40% ) EKG interpretations - Telemetry EKG Rhythm: Atrial Fibrillation (Atrial fibrillation nonspecific ST-T's) Assessment and Plan 76-year-old male with a history of cardiomyopathy in the past has atrial fibrillation patient is a poor historian. On 2 AV drake blocking agent. Echocardiogram bedside appears to have normal LV function. EKG is atrial fibrillation with controlled rate. Patient is a moderate risk cardiovascular patient going for a moderate risk cardiovascular procedure as no cardiac contraindication for proposed surgery. Start oral anticoagulation once cleared by surgery - Patient Problems (1) Hyperlipemia, mixed Current Visit: Yes Status: Chronic (2) Atrial fibrillation Current Visit: Yes Status: Chronic Qualifiers: Atrial fibrillation type: persistent (not longstanding) Qualified Code(s): I48.19 - Other persistent atrial fibrillation; I48.1 - Persistent atrial fibrillation (3) Acute appendicitis Current Visit: Yes Status: Acute Qualifiers: Appendicitis abscess presence: without abscess (4) COPD (chronic obstructive pulmonary disease) Current Visit: Yes Status: Chronic (5) Hypertension Current Visit: No Status: Chronic Qualifiers: Hypertension type: primary hypertension Qualified Code(s): I10 - Essential (primary) hypertension (6) TIA (transient ischemic attack) Current Visit: No Status: Chronic
[2022-05-09 11:50] LABS: Blood Urea Nitrogen 21 mg/dL (9-20); Calcium 8.6 mg/dL (8.4-10.2); Hemolysis Index 20
[2022-05-09] MEDS ORDERED: LIDOCAINE (1%) 10 MG/1 ML VIAL 20 ML MDV ONE (11:52)
[2022-05-09] MEDS ORDERED: BUPIVACAINE-EPINEPHRINE/PF 0.5%-1:200,000 (30 ML) VIAL INFILTRATI ONE ×2 (11:53→12:58)
[2022-05-09] MEDS ORDERED: ROCURONIUM 50 MG/5 ML INJ IV ONE (11:57)
[2022-05-09] MEDS ORDERED: fentaNYL 100 MCG/2 ML INJ ONE (11:57)
[2022-05-09] MEDS ORDERED: LIDOCAINE MPF (2%) 20 MG/1 ML VIAL 5 ML ONE (11:57)
[2022-05-09] MEDS ORDERED: propofoL 200 MG/20 ML VIAL IV ONE (11:58)
[2022-05-09 12:13] LABS: BUN/Creatinine Ratio 30
[2022-05-09] MEDS ORDERED: ceFAZolin 1 GM VIAL ONE ×2 (12:42→12:43)
[2022-05-09] MEDS ORDERED: LIDOCAINE (1%) 10 MG/1 ML VIAL 20 ML MDV INFILTRATI ONE (12:58)
[2022-05-09] MEDS ORDERED: WATER FOR IRRIG STERILE 1,500 ML BOTTLE IR ONE (12:58)
[2022-05-09] MEDS ORDERED: SUGAMMADEX SODIUM 200 MG/2 ML VIAL IV ONE (13:03)
[2022-05-09] MEDS ORDERED: ALBUTEROL 8.5 GM MDI INHALATION IH ONE (13:16)
[2022-05-09] MEDS ORDERED: LACTATED RINGERS 1,000 ML ONE (13:18)
[2022-05-09] MEDS ORDERED: ONDANSETRON 4 MG/2 ML INJ ONE (13:18)
[2022-05-09] MEDS ORDERED: KETOROLAC 30 MG/1 ML INJ ONE (13:18)
--- NOTE | 2022-05-09 13:23 | Operative Report ---
Operative Report Operative Report: Procedure date: 05/09/2022 Preop diagnosis: Acute appendicitis Postop diagnosis: Same Procedure: Laparoscopic appendectomy Surgeon: Dr. Jackson Anesthesia: General endotracheal Estimated blood loss: 50 cc Specimen: Appendix Findings: This patient presents with a acute appendicitis diagnosed on CAT scan. She is taken to the OR and under general endotracheal anesthesia timeouts and consents are obtained. An Madden catheter is placed. Abdomen is prepped with ChloraPrep and 3 minutes later draped in a sterile fashion. A 2 mm incision is made in the left upper quadrant and Veress needle was used to gain access peritoneal cavity. Abdomen is insufflated with CO2. 5 White port is placed in the right upper quadrant and in the low midline. A 12 mm port is placed supraumbilically. The appendix is identified in the right lower quadrant and grasped with graspers. The endoscopic SATNAM stapler is used to separate the appendix from the base of the cecum. Harmonic scalpel was used to divide the mesoappendix. Specimen is then placed in a specimen bag and extracted through the 10 mm port. The fascial defect is then closed with a Julian Pacheco system and a 2-0 Vicryl stitch. Skin is then closed with katherine.
--- NOTE | 2022-05-09 13:36 | Anesthesia Consultation ---
Anesthesia Consult and Med Hx Date of service: 05/09/22 - Airway Anesthetic Teeth Evaluation: Edentulous ROM Head & Neck: Adequate Mental/Hyoid Distance: Adequate Mallampati Class: Class II Intubation Access Assessment: Probably Good - Pulmonary Exam CTA: Yes - Cardiac Exam Cardiac Exam: RRR - Pre-Operative Health Status ASA Pre-Surgery Classification: ASA3, Emergency Proposed Anesthetic Plan: General - Pulmonary Hx Smoking: Yes (2ppd) Hx Respiratory Symptoms: No SOB: Yes (on exertion) COPD: Yes Hx Sleep Apnea: No - Cardiovascular System Hx Hypertension: Yes (CHF - EF 35% ) Hx Heart Attack/AMI: Yes (x2 - 10 years ago) Hx Cardia Arrhythmia: Yes (Afib) - Central Nervous System CVA: Yes (denies residual ) - Gastrointestinal Hx Gastroesophageal Reflux Disease: No - Endocrine Hx Renal Disease: No Hx Liver Disease: No Hx Non-Insulin Dependent Diabetes: No Hx Thyroid Disease: No - Hematic Hx Anemia: No Hx Sickle Cell Disease: No - Other Systems Hx Alcohol Use: No Hx Substance Use: No Hx Cancer: No Hx Obesity: No - Additional Comments Anesthesia Medical History Comments: no hx of anesthesia complications
[2022-05-09] MEDS ORDERED: HYDROmorphone 0.5 MG/0.5 ML INJ IV PRN (13:46)
--- NOTE | 2022-05-09 13:46 | Anesthesia Day of Surgery ---
Anesthesia Day of Surgery - Day of Surgery Patient Examined: Yes Patient H&P Reviewed: Yes Patient is NPO: Yes
--- NOTE | 2022-05-09 14:07 | Post Anesthesia Evaluation ---
- Post Anesthesia Evaluation Patient Participated: Yes Airway Patent: Yes Stable Respiratory Function: Yes Nausea/Vomiting: No Temp > 96.8F: Yes Pain Manageable: Yes Adequeate Hydration: Yes Anesthesia Complications: No Block Receding Appropriately: Not Applicable Patient on Ventilator: No
[2022-05-09] MEDS ORDERED: ONDANSETRON 4 MG/2 ML INJ IV PRN (14:30)
[2022-05-09] MEDS: oxyCODONE /ACETAMINOPHEN 5-325MG TAB PO PRN (16:48)
[2022-05-09] MEDS: PRAVASTATIN 40 MG TAB PO SCH (22:24)
[2022-05-10] MEDS: SODIUM CHLORIDE 0.9% 1000 ML 1,000 ML IV SCH (05:41)
[2022-05-10 05:42] LABS: Basophils % (Auto) 0.2 % (0.0-1.8); Eosinophils % (Auto) 0.5 % (0.0-4.3); Hematocrit 41.1 % (35.5-45.6); Hemoglobin 13.4 gm/dl (11.8-15.2); Lymphocytes # (Auto) 0.5 K/mm3 (1.2-5.4); Lymphocytes % (Auto) 6.1 % (13.4-35.0); Mean Corpuscular HGB Conc 33 % (32-34); Mean Corpuscular Volume 92 fl (84-94); Monocytes # (Auto) 0.4 K/mm3 (0.0-0.8); Monocytes % (Auto) 5.7 % (0.0-7.3); Platelet Count 166 K/mm3 (140-440); Red Cell Distribution Width 13.9 % (13.2-15.2)
[2022-05-10] MEDS: FUROSEMIDE 20 MG/2 ML INJ IV SCH (05:46)
[2022-05-10] MEDS: oxyCODONE /ACETAMINOPHEN 5-325MG TAB PO PRN (05:49)
[2022-05-10 05:55] LABS: BUN/Creatinine Ratio 33; Blood Urea Nitrogen 30 mg/dL (9-20); Calcium 8.2 mg/dL (8.4-10.2); Hemolysis Index 0
--- NOTE | 2022-05-10 08:11 | Progress Note ---
Assessment and Plan pod #1 sp appendectomy for acut appendicitis without perf. Pt feels well. If medically cleared from copd and cardiac issues he is surgically cleared for dc. Fu with me in one week. Subjective Date of service: 05/10/22 Patient Reports: Positive: no new complaints, feels better, pain is less Narrative: pod #1 sp appendectomy for acut appendicitis without perf. Pt feels well. If medically cleared from copd and cardiac issues he is surgically cleared for dc. Fu with me in one week. Objective Vital Signs - 12hr 05/09/22 05/09/22 05/09/22 20:19 21:03 22:48 Temperature 97.6 F Pulse Rate 59 L Respiratory 18 Rate Blood Pressure 122/67 O2 Sat by Pulse 100 98 97 Oximetry 05/10/22 05/10/22 05:44 07:24 Temperature 98.5 F Pulse Rate 90 Respiratory 18 Rate Blood Pressure 133/77 O2 Sat by Pulse 94 98 Oximetry - Labs 05/10/22 05:05 05/10/22 05:05 Diabetes panel 05/09/22 05/09/22 05/10/22 Range/Units 08:58 10:22 05:05 Sodium 135 L 136 L (137-145) mmol/L Potassium 5.6 H 5.1 H 4.8 (3.6-5.0) mmol/L Chloride 97.6 L 96.2 L (98-107) mmol/L Carbon Dioxide 28 33 H (22-30) mmol/L BUN 21 H 30 H (9-20) mg/dL Creatinine 0.7 L 0.9 (0.8-1.3) mg/dL Glucose 128 H 100 (75-100) mg/dL Calcium 8.6 8.2 L (8.4-10.2) mg/dL Calcium panel 05/09/22 05/10/22 Range/Units 10:22 05:05 Calcium 8.6 8.2 L (8.4-10.2) mg/dL Pituitary panel 05/09/22 05/09/22 05/10/22 Range/Units 08:58 10:22 05:05 Sodium 135 L 136 L (137-145) mmol/L Potassium 5.6 H 5.1 H 4.8 (3.6-5.0) mmol/L Chloride 97.6 L 96.2 L (98-107) mmol/L Carbon Dioxide 28 33 H (22-30) mmol/L BUN 21 H 30 H (9-20) mg/dL Creatinine 0.7 L 0.9 (0.8-1.3) mg/dL Glucose 128 H 100 (75-100) mg/dL Calcium 8.6 8.2 L (8.4-10.2) mg/dL Adrenal panel 05/09/22 05/09/22 05/10/22 Range/Units 08:58 10:22 05:05 Sodium 135 L 136 L (137-145) mmol/L Potassium 5.6 H 5.1 H 4.8 (3.6-5.0) mmol/L Chloride 97.6 L 96.2 L (98-107) mmol/L Carbon Dioxide 28 33 H (22-30) mmol/L BUN 21 H 30 H (9-20) mg/dL Creatinine 0.7 L 0.9 (0.8-1.3) mg/dL Glucose 128 H 100 (75-100) mg/dL Calcium 8.6 8.2 L (8.4-10.2) mg/dL
[2022-05-10] MEDS: atenoloL 50 MG TAB PO SCH (08:38)
[2022-05-10] MEDS: HYDROmorphone 0.5 MG/0.5 ML INJ IV PRN (08:39)
--- NOTE | 2022-05-10 09:48 | Discharge Summary ---
Providers - Providers Date of Admission: 05/08/22 19:50 Date of discharge: 05/10/22 Attending physician: STANLEY RUIZ 05/08/22 19:50 Consult to Physician [CONS] Routine Comment: Consulting Provider: CORTES REED Physician Instructions: Reason For Exam: chf 05/08/22 20:01 Consult to Physician [CONS] Stat Comment: Consulting Provider: ERIK URRUTIA Physician Instructions: Reason For Exam: appendicitis Primary care physician: [employer] SAL[employer] CONSULTANT Hospitalization Reason for admission: Appendicitis Condition: Stable Procedures: Appendectomy Hospital course: 76 YO Male with Systolic CHF(EF 35%), COPD, HTN, [place], Nicotine Dependence presents ED for evaluation of right-sided abdominal pain. The patient was admitted with diagnosis below: Acute appendicitis COPD, compensated. Chronic systolic heart failure, compensated. Echocardiogram 2016 revealed EF of 35-40%. Moderate global hypokinesis. Mild concentric left ventricular hypertrophy Hyponatremia Hyperkalemia Hypertension History of [place] Nicotine dependence Hospital course: 05/09/2022. Recheck BMP this AM. Patient received Lasix and Kayexalate yesterday. We will follow-up to see if treatment has corrected potassium. Given patient's cardiac history of CHF and OH, Cardiology has been consulted and echocardiogram pending. Await surgery follow-up for appendectomy 05/10/2022. Surgery has cleared the patient for discharge and patient is to follow-up in 1 week as an outpatient with surgery. Electrolyte derangements have resolved. Dedicated discharge time 32 minutes Disposition: 01 HOME / SELF CARE / HOMELESS Final Discharge Diagnosis (Prints w/discharge instructions): Acute appendicitis. COPD, compensated. Chronic systolic heart failure, compensated. Hyponatremia. Hyperkalemia. Hypertension. History of [place]. Nicotine dependence Core Measure Documentation - Palliative Care Palliative Care/ Comfort Measures: Not Applicable - Core Measures Any of the following diagnoses?: none Exam - Constitutional Vitals: Temp Pulse Resp BP Pulse Ox 98.5 F 90 18 133/77 98 05/10/22 05:44 05/10/22 05:44 05/10/22 05:44 05/10/22 05:44 05/10/22 07:24 General appearance: Present: no acute distress, well-nourished - EENT Eyes: Present: PERRL ENT: hearing intact, clear oral mucosa - Neck Neck: Present: supple, normal ROM - Respiratory Respiratory effort: normal Respiratory: bilateral: CTA - Cardiovascular Heart Sounds: Present: S1 & S2. Absent: rub, click - Extremities Extremities: pulses symmetrical, No edema Peripheral Pulses: within normal limits - Abdominal General gastrointestinal: Present: soft, non-tender, non-distended, normal bowel sounds Male genitourinary: Present: normal - Integumentary Integumentary: Present: clear, warm, dry - Musculoskeletal Musculoskeletal: gait normal, strength equal bilaterally - Psychiatric Psychiatric: appropriate mood/affect, intact judgment & insight - Neurologic Neurologic: CNII-XII intact, moves all extremities Plan Activity: advance as tolerated Weight Bearing Status: Weight Bear as Tolerated Diet: regular Follow up with: PRIMARY CAREMD [Primary Care Provider] - 7 Days ERIK URRUTIA MD [Staff Physician] - 7 Days CORTES REED MD [Staff Physician] - 7 Days Prescriptions: Apixaban [Eliquis] 5 mg PO BID #60 tab oxyCODONE /ACETAMINOPHEN [Percocet 5/325 mg] 1 tab PO Q6H PRN #10 tablet PRN Reason: Pain, Moderate (4-6)
[2022-05-10] MEDS: LISINOPRIL 10 MG TAB PO SCH (10:16)
--- NOTE | 2022-05-10 11:07 | Progress Note ---
Assessment and Plan 76-year-old male with a history of cardiomyopathy in the past has atrial fibrillation patient is a poor historian. On 2 AV drake blocking agent. Echocardiogram bedside appears to have normal LV function. EKG is atrial fibrillation with controlled rate. Post surgery patient is doing well and was cleared by surgery to start oral anticoagulation Eliquis 5 mg twice a day. Continue home medications atenolol and Cardizem and statin and lisinopril. Patient will follow-up in the office in 1 to 2 weeks. - Patient Problems (1) Hyperlipemia, mixed Current Visit: Yes Status: Chronic (2) Atrial fibrillation Current Visit: Yes Status: Chronic Qualifiers: Atrial fibrillation type: persistent (not longstanding) Qualified Code(s): I48.19 - Other persistent atrial fibrillation; I48.1 - Persistent atrial fibrillation (3) Acute appendicitis Current Visit: Yes Status: Acute Qualifiers: Appendicitis abscess presence: without abscess (4) COPD (chronic obstructive pulmonary disease) Current Visit: Yes Status: Chronic (5) Hypertension Current Visit: No Status: Chronic Qualifiers: Hypertension type: primary hypertension Qualified Code(s): I10 - Essential (primary) hypertension (6) TIA (transient ischemic attack) Current Visit: No Status: Chronic Subjective Date of service: 05/10/22 Principal diagnosis: afib Interval history: no palpations Objective Vital Signs Temp Pulse Resp BP BP Pulse Ox 05/10/22 07:24 98 05/10/22 05:44 98.5 F 90 18 133/77 94 05/09/22 22:48 97.6 F 59 L 18 122/67 97 05/09/22 21:03 98 05/09/22 20:19 100 05/09/22 16:18 97.6 F 79 16 119/64 99 05/09/22 14:37 97.5 F L 67 20 105/48 95 05/09/22 14:15 75 13 118/62 96 05/09/22 14:00 97.2 F L 76 14 119/64 96 05/09/22 13:45 82 15 115/70 96 05/09/22 13:35 86 14 111/64 100 05/09/22 13:30 75 12 107/61 100 05/09/22 13:25 77 12 97/53 100 05/09/22 13:21 98 F 75 12 100/49 100 05/09/22 11:52 97.7 F 81 18 137/82 92 - Physical Examination General: No Apparent Distress HEENT: Positive: PERRL, Mucus Membranes Moist Neck: Positive: neck supple, trachea midline Cardiac: Positive: Irregularly Regular Lungs: Positive: clear to auscultation Neuro: Positive: Grossly Intact Abdomen: Positive: Soft, Active Bowel Sounds, Tender Skin: Positive: Clear Incision: Cardiac Cath Site Musculoskeletal: No Pain, Normal Range of Motion Extremities: Present: normal. Absent: edema - Labs and Meds CBC 05/10/22 Range/Units 05:05 WBC 7.4 (4.5-11.0) K/mm3 RBC 4.50 (3.65-5.03) M/mm3 Hgb 13.4 (11.8-15.2) gm/dl Hct 41.1 (35.5-45.6) % Plt Count 166 (140-440) K/mm3 Lymph # (Auto) 0.5 L (1.2-5.4) K/mm3 [place] # (Auto) 0.4 (0.0-0.8) K/mm3 Eos # (Auto) 0.0 (0.0-0.4) K/mm3 Baso # (Auto) 0.0 (0.0-0.1) K/mm3 Comprehensive Metabolic Panel 05/09/22 05/10/22 Range/Units 10:22 05:05 Sodium 135 L 136 L (137-145) mmol/L Potassium 5.1 H 4.8 (3.6-5.0) mmol/L Chloride 97.6 L 96.2 L (98-107) mmol/L Carbon Dioxide 28 33 H (22-30) mmol/L BUN 21 H 30 H (9-20) mg/dL Creatinine 0.7 L 0.9 (0.8-1.3) mg/dL Glucose 128 H 100 (75-100) mg/dL Calcium 8.6 8.2 L (8.4-10.2) mg/dL - Imaging and Cardiology Echo: report reviewed (normal lv function ef 55%), other (2016 ef 35-40% ) - Telemetry EKG Rhythm: Atrial Fibrillation (controlled rate)
[2022-05-10 13:07] VITALS: BP 127/59
--- NOTE | 2022-05-11 16:41 | Electrocardiograph Report ---
[facility] Test Date: 2022-05-08 Test Time: 14:33:14 Pat Name: CRYSTAL ROLLE Department: Room: A378 Gender: M Collection Coordinator: 911 : 1945 Requested By: SABRINA FRANCO Order Number: [id number] Reading MD: Melina Auguste Measurements Intervals [place] Rate: 88 P: CT: QRS: -74 QRSD: 122 T: 85 QT: 385 QTc: 467 Interpretive Statements Atrial fibrillation Left bundle branch block Low voltage QRS No previous ECG available for comparison Electronically Signed On 05-11-2022 16:40:36 EDT by Melina Auguste
--- NOTE | 2022-05-11 16:49 | Electrocardiograph Report ---
[facility] Test Date: 2022-05-09 Test Time: 10:56:48 Pat Name: CRYSTAL ROLLE Department: Room: A378 1 Gender: M Epic Willow Specialist: JULIO : 1945 Requested By: CORTES REED Order Number: [id number] Reading MD: Melina Auguste Measurements Intervals [place] Rate: 81 P: [place]: QRS: -62 QRSD: 130 T: 83 QT: 424 QTc: 493 Interpretive Statements Atrial fibrillation with well-controlled ventricular rate Left bundle branch block Compared to ECG 05/08/2022 14:33:14 No significant changes Electronically Signed On 05-11-2022 16:49:33 EDT by Melina Auguste
== END 2022-05-10 16:37 | disposition home or self-care (01) | DRG 342 ==
LOC: ED 13:21 → 3A 19:50
PROVIDERS: ADMIT Internal Medicine; ATTEND Hospitalist
PROC: 0DTJ4ZZ Resection of Appendix, Percutaneous Endoscopic Approach (ICD-10-PCS; principal; 2022-05-09)
DX: K35.80 Unspecified acute appendicitis (principal); E87.1 Hypo-osmolality and hyponatremia; J44.1 Chronic obstructive pulmonary disease with (acute) exacerbation; I50.22 Chronic systolic (congestive) heart failure; I48.19 Other persistent atrial fibrillation; I11.0 Hypertensive heart disease with heart failure; I25.2 Old myocardial infarction; F17.200 Nicotine dependence, unspecified, uncomplicated; Z79.899 Other long term (current) drug therapy; Z71.6 Tobacco abuse counseling; N40.0 Benign prostatic hyperplasia without lower urinary tract symptoms; E87.5 Hyperkalemia; E78.2 Mixed hyperlipidemia; Z86.73 Personal history of transient ischemic attack (TIA), and cerebral infarction without residual deficits
CPT/HCPCS: 36415; 71045; 74177; 80048; 80053; 81001; 82010; 82550; 82553; 83690; 83735; 83880; 84132; 84439; 84443; 84484; 85007; 85025; 85610; 86140; 88304; 93005; 93306; 94760; 99406; G0378; J3490; Q9967; C8929; J0690; J1170; J1335; J1815; J1885; J1940; J2405; J2704; J2930; J3010; J7030; J7120